=== PATIENT | male | born 1975 | race Caucasian/White ===

== ENCOUNTER 2016-08-19 18:12 | Emergency (ER) | payer SELFPAY ==
[2016-08-19] MEDS ORDERED: Sodium Chloride 0.9% 1,000 ML PRIMARY IV ONE (18:18)
[2016-08-19] MEDS ORDERED: fentaNYL Inj 100 MCG/2 ML VIAL IVP ONE (18:18)
[2016-08-19] MEDS ORDERED: NORMAL SALINE 10 ML SYRINGE FLUSH IVP PRN (18:18)
[2016-08-19] MEDS ORDERED: Prochlorperazine Edisylate Inj 10mg/2ml vial IVP ONE (18:18)
[2016-08-19 18:53] LABS: BILIRUBIN,URINE NEGATIVE (NEG); CLARITY,URINE CLOUDY (CLEAR); GLUCOSE, URINE (UA) NEGATIVE (NEG); LEUKOCYTE ESTERASE ,URINE NEGATIVE (NEG); NITRATE,URINE NEGATIVE (NEG); OCCULT BLOOD,URINE LARGE (NEG); PROTEIN,URINE 30 mg/dl (NEG); UROBILINOGEN,URINE 0.2 EU/dL (0.2)
[2016-08-19 18:56] LABS: MEAN CORPUSCULAR HEMOGLOBIN 28.9 PG (27-31); MEAN CORPUSCULAR HGB CONC 33.3 g/dL (33-37); WHITE BLOOD COUNT 12.77 10^3/uL (4.8-10.8)
[2016-08-19 18:59] LABS: URINE SAMPLE TYPE CLEAN CATCH URINE
[2016-08-19 19:00] LABS: RBC,URINE 80-100 /hpf; SQUAMOUS EPITHELIAL CELL,UR FEW
[2016-08-19 19:03] LABS: AMYLASE 80 U/L (30-110); ASPARTATE AMINO TRANSFERASE 25 IU/L (21-57); BILIRUBIN,TOTAL 0.5 mg/dL (0.3-1.2); BLOOD UREA NITROGEN 15 mg/dL (7-22); BUN/CREATININE RATIO 16.66 (6-20); C-REACTIVE PROTEIN 3.2 mg/dL (0.0-0.9); CALCIUM 9.8 mg/dL (8.7-10.7); CHLORIDE 104 meq/L (98-112); CREATININE 0.9 mg/dL (0.70-1.50); EST GLOMERULAR FILTRATION > 60 (>60 ml/min/1.73m(2)); GLUCOSE 102 mg/dL (78-110); SODIUM 140 meq/L (135-145); TOTAL PROTEIN 8.1 g/dL (6.1-8.0)
[2016-08-19 19:04] LABS: CANNABINOID SCREEN,URINE POSITIVE (NEG); COCAINE SCREEN NEGATIVE (NEG); METHAMPHETAMINES SCREEN,URINE NEGATIVE (NEG); URINE SAMPLE TYPE CLEAN CATCH URINE; URINE SPECIFIC GRAVITY - MAN 1.015
[2016-08-19 19:15] LABS: PLATELET MORPHOLOGY COMMENT NORMAL MORPHOLOGY (NORM)
[2016-08-19 19:16] LABS: BAND NEUTROPHILS % 0 % (0-10); BASOPHILS % (MANUAL) 1 % (0-1); EOSINOPHILS % (MANUAL) 1 % (0-8); LYMPHOCYTES % (MANUAL) 25 % (10-50); MONOCYTES % (MANUAL) 5 % (0-12); NEUTROPHILS % (MANUAL) 68 % (50-80)
[2016-08-19 20:21] VITALS: RESP 22; TEMP 98.2
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
== END 2016-08-19 19:19 | disposition left against medical advice (07) ==
LOC: ER 18:12
DX: R10.31 Right lower quadrant pain (principal); R31.9 Hematuria, unspecified; R11.2 Nausea with vomiting, unspecified
CPT/HCPCS: 80053; 81001; 81003; 82150; 83690; 85007; 86140; 87088; 96374; 96375; 99283 ×2; G0477; J3010; J0780; J7030